=== PATIENT | male | born 1975 | race African-American/Black ===

== ENCOUNTER 2019-05-29 21:03 | Emergency (ER) | payer OTHER, BC ==
[2019-05-29] MEDS ORDERED: IBUPROFEN 800 MG TABLET PO ONE (21:46)
--- NOTE | 2019-05-29 21:47 | ER Document Report ---
ED Medical Screen (RME) - General Chief Complaint: Leg Pain Stated Complaint: PAIN IN LOWER RIGHT LEG Time Seen by Provider: 05/29/19 21:43 Mode of Arrival: Ambulatory Information source: Patient Notes: This 44-year-old male presents emergency department with right lower leg pain. 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 He was going down some steps him when he got to the bottom steps at the like a stretch and then he felt a pop on the back of his right leg. Denies past medical history of injury to the leg. Patient is having difficulty flexing and extending his foot. I have greeted and performed a rapid initial assessment of this patient. A comprehensive ED assessment and evaluation of the patient, analysis of test results and completion of the medical decision making process will be conducted by additional ED providers. Dictation of this chart was performed using voice recognition software; therefore, there may be some unintended grammatical errors. TRAVEL OUTSIDE OF THE [place] IN LAST 30 DAYS: No Physical Exam - Vital signs Vitals: Temp Pulse Resp BP Pulse Ox 99.0 F 69 18 134/79 H 96 05/29/19 21:07 05/29/19 21:07 05/29/19 21:07 05/29/19 21:07 05/29/19 21:07 Course - Vital Signs Vital signs: Temp Pulse Resp BP Pulse Ox 99.0 F 69 18 134/79 H 96 05/29/19 21:07 05/29/19 21:07 05/29/19 21:07 05/29/19 21:07 05/29/19 21:07
--- NOTE | 2019-05-30 00:11 | ER Document Report ---
ED Extremity Problem, Lower - General Chief Complaint: Leg Pain Stated Complaint: PAIN IN LOWER RIGHT LEG Time Seen by Provider: 05/29/19 21:43 Mode of Arrival: Ambulatory TRAVEL OUTSIDE OF THE [place] IN LAST 30 DAYS: No - HPI Notes: 44-year-old male to the emergency department with complaints of right Achilles pain after he injured it when walking downstairs. He states that he was walking downstairs at his work when he felt an immediate pop and pain. He states that bearing weight gives him quite a bit of pain. He denies any recent injuries or recent pain to the heel or to the Achilles. He denies any recent fluoroquinolone use. He denies any other injuries. - Related Data Allergies/Adverse Reactions: No Known Allergies Allergy (Unverified 05/29/19 21:47) Past Medical History - General Information source: Patient - Social History Smoking Status: Never Smoker Chew tobacco use (# tins/day): No Frequency of alcohol use: None Drug Abuse: None Family History: Reviewed & Not Pertinent Patient has suicidal ideation: No Patient has homicidal ideation: No Review of Systems - Review of Systems Constitutional: denies: Chills, Fever EENT: No symptoms reported Cardiovascular: denies: Chest pain, Palpitations, Heart racing, Orthopnea, Dyspnea, Syncope, Dizziness, Lightheaded Respiratory: denies: Cough, Short of breath Gastrointestinal: denies: Abdominal pain, Diarrhea, Nausea, Vomiting Musculoskeletal: See HPI, Joint pain Skin: No symptoms reported -: Yes All other systems reviewed and negative Physical Exam - Vital signs Vitals: Temp Pulse Resp BP Pulse Ox 99.0 F 69 18 134/79 H 96 05/29/19 21:07 05/29/19 21:07 05/29/19 21:07 05/29/19 21:07 05/29/19 21:07 Interpretation: Normal - General General appearance: Appears well, Alert - HEENT Head: Normocephalic, Atraumatic Eyes: Normal Pupils: PERRL - Respiratory Respiratory status: No respiratory distress Chest status: Nontender Breath sounds: Normal Chest palpation: Normal - Cardiovascular Rhythm: Regular Heart sounds: Normal auscultation Murmur: No - Extremities General upper extremity: Normal inspection, Nontender, Edema, Normal ROM, Normal strength, Normal temperature Ankle: Tender - There is tenderness to palpation over the Achilles tendon of the right ankle. The tendon appears to be intact and the calf muscles of the back of the leg also appear to be intact. However palpation over the tendon is significantly painful for the patient. Stressing of the Achilles also increases pain with dorsiflexion. There is no tenderness to palpation over the plantar heel of the foot. There is no bony tenderness to the lateral malleoli lower processes. There is no edema or erythema. There is no isabella deformity. Nontender to palpation over the right knee and hip. Patient is able to ambulate on the ankle but it produces quite a bit of pain. Course - Re-evaluation Re-evalutation: 05/30/19 IMpression: Right achilles injury. While the achilles appears to be intact on exam, there may be a partial tear or rupture present. Noted [facility] US from Triage ordered. No [facility] radiologist available for reading, but will be available tomorrow. Will go ahead and splint the patient and make him NWB until seen by orthopedist. patient agrees with the plan. - Vital Signs Vital signs: Temp Pulse Resp BP Pulse Ox 99.0 F 69 18 134/79 H 96 05/29/19 21:07 05/29/19 21:07 05/29/19 21:07 05/29/19 21:07 05/29/19 21:07 Discharge - Discharge Clinical Impression: Achilles tendon injury Qualifiers: Encounter type: initial encounter Laterality: right Qualified Code(s): S86.001A - Unspecified injury of right Achilles tendon, initial encounter Condition: Stable Disposition: HOME, SELF-CARE Additional Instructions: Keep ankle splinted. No weight bearing until cleared by orthopedist. Take medicines as prescribed. Rest, Ice, elevate. return if worsening symptoms. Prescriptions: Tramadol HCl [Ultram 50 mg Tablet] 50 mg PO Q6H PRN #10 tab PRN Reason: Referrals: VANDA BANGURA JR, DO [ACTIVE PROVISIONAL STAFF] - Follow up in 1 week
[2019-05-30] MEDS ORDERED: KETOROLAC TROMETHAMINE 60 MG/2 ML SDV IM ONE (00:19)
[2019-05-30 02:10] VITALS: BP 135/75
== END 2019-05-30 01:55 | disposition home or self-care (01) ==
LOC: ER 21:03
DX: S86.001A Unspecified injury of right Achilles tendon, initial encounter (principal); X58.XXXA Exposure to other specified factors, initial encounter
CPT/HCPCS: 76882; 29515; J1885; 96374; 99283